=== PATIENT | male | born 1935 | race American Indian/Alaskan Native ===

== ENCOUNTER 2018-07-02 21:51 | Inpatient (IN) | payer MEDICARE ==
[2018-07-02] MEDS ORDERED: SUBLIMAZE ONE (22:13)
[2018-07-02] MEDS ORDERED: NACL 0.9% 500 ML 500 ML IV ONE (22:27)
--- NOTE | 2018-07-02 22:28 | Emergency Department Report ---
ED General Adult HPI - General Chief complaint: Shoulder Injury Stated complaint: SHOULDER PAIN Time Seen by Provider: 07/02/18 21:55 Source: patient, family, EMS (ems notes not available at time of chart dictation), RN notes reviewed, old records reviewed Mode of arrival: Stretcher Limitations: Altered Mental Status, Physical Limitation - History of Present Illness Initial comments: This is an 82-year-old gentleman. The patient is not known to this provider previously. His past medical history includes dementia, DVT, not currently on systemic an ticoagulation, history of anemia, IVC filter. The patient is brought to the hospital by emergency medical services for unwitnessed fall, and questionable left shoulder fracture, dislocation. The patient's last known well time is not known. He was apparently found on the floor, by relatives, for uncertain duration of time, for uncertain mechanism. 911 was then contacted. Upon initial arrival, the patient is awake, protecting his airway, and following commands. He is able to move his right upper extremity and right lower extremity without difficulty. He has weakness in his left lower extremity. He is not sure if this is old or new. He is moving his left hand, wrist, also weakly, but is found to have a palpable deformity in the proximal left humerus. Family arrived shortly thereafter. His daughters indicate that as of now, he is a full code, and advanced directives, goals of care have not been explicitly discussed. they further indicate the patient is mostly wheelchair bound, and has poor strength in his left leg at baseline, secondary to an old hip fracture. They do not believe he's had any fevers or chills, nausea or vomiting. Patient was given fentanyl for proximal left humerus fracture. Code trauma called overhead for mechanical fall, with left-sided weakness, prior to family arriving. Patient is placed in a c-collar during his primary survey. Discussed with orthopedics, Dr. Samuel, who is agreeable to following consultation for proximal left humerus fracture. The patient is a poor historian, and is not able to describe and is not able to describe the qualitative aspects, nature of his pain, symptoms, not able to describe radiation, if any, and is unable to articulate exacerbating or relieving factors. -: unknown Location: left, upper extremity Radiation: other Severity scale (0 -10): 7 Quality: other Consistency: other Improves with: other Worsens with: other Associated Symptoms: other Treatments Prior to Arrival: other - Related Data Home Medications Medication Instructions Recorded Confirmed Last Taken Carbidopa/Levodopa [Carbidopa-Levo 10 - 100 tab PO TID MDD Dose 10-100 10/30/17 07/02/18 07/02/18 10-100 mg Odt] Aspirin EC [Aspirin Enteric Coated 81 mg PO QDAY 11/05/17 07/02/18 07/02/18 TAB] Esomeprazole Magnesium 20 mg PO DAILY 07/02/18 07/02/18 07/02/18 Vitamin D3 2,000 UNIT CAP 2,000 units PO DAILY 07/02/18 07/02/18 07/02/18 cloNIDine-TTS PATCH [Catapres-Tts 0.2 mg TD 1XW 07/02/18 07/02/18 7 Days Ago Patch] ~06/25/18 Allergies Allergy/AdvReac Type Severity Reaction Status Date / Time No Known Allergies Allergy Unverified 10/30/17 23:40 ED Review of Systems ROS: Stated complaint: SHOULDER PAIN Other details as noted in HPI Comment: Unobtainable due to pts medical conditions ED Past Medical Hx - Past Medical History Hx Hypertension: Yes Hx Dementia: Yes Additional medical history: Parkinson, - Surgical History Additional Surgical History: L. hip fracture (introtrochanteric) - Social History Smoking Status: Never Smoker Substance Use Type: None - Medications Home Medications: Home Medications Medication Instructions Recorded Confirmed Last Taken Type Carbidopa/Levodopa [Carbidopa-Levo 10 - 100 tab PO TID MDD Dose 10-100 10/30/17 07/02/18 07/02/18 History 10-100 mg Odt] Aspirin EC [Aspirin Enteric Coated 81 mg PO QDAY 11/05/17 07/02/18 07/02/18 History TAB] Esomeprazole Magnesium 20 mg PO DAILY 07/02/18 07/02/18 07/02/18 History Vitamin D3 2,000 UNIT CAP 2,000 units PO DAILY 07/02/18 07/02/18 07/02/18 History cloNIDine-TTS PATCH [Catapres-Tts 0.2 mg TD 1XW 07/02/18 07/02/18 7 Days Ago History Patch] ~06/25/18 ED Physical Exam - General Limitations: Altered Mental Status, Physical Limitation General appearance: in no apparent distress - Head Head exam: Present: atraumatic, normocephalic - Eye Eye exam: Present: normal appearance, PERRL - ENT ENT exam: Present: normal exam, normal orophraynx, normal external ear exam - Neck Neck exam: Present: normal inspection, full ROM. Absent: tenderness, meningismus - Respiratory Respiratory exam: Present: normal lung sounds bilaterally. Absent: respiratory distress, wheezes, rales, rhonchi, stridor, chest wall tenderness - Cardiovascular Cardiovascular Exam: Present: regular rate, normal rhythm, normal heart sounds. Absent: bradycardia, tachycardia, irregular rhythm - GI/Abdominal GI/Abdominal exam: Present: soft. Absent: distended, tenderness, guarding, rebound, rigid, normal bowel sounds, pulsatile mass - Rectal Rectal exam: Present: normal inspection, normal rectal tone, heme (-) stool. Absent: heme (+) stool, black stool, bloody stool, fecal impaction - exam: Present: normal inspection External exam: Present: normal external exam - Extremities Exam Extremities exam: Present: normal inspection, tenderness, other (there is left proximal humerus tenderness. There is no long bony tenderness otherwise. The muscular compartments are soft. The pelvis is stable. 2+ pulses noted in the bilateral upper, lower extremities.). Absent: full ROM (patient moving right arm, right leg without difficulty. Left leg initially weak, difficulty moving, then range of motion improves. Left arm appears to be weak as well, range of motion in the wrist grossly appears to be intact.) - Back Exam Back exam: Present: normal inspection. Absent: tenderness, CVA tenderness (R) - Neurological Exam Neurological exam: Present: altered, other (there is no facial droop. The tongue is midline. Extraocular movements are intact bilaterally. 5 out of 5 strength right upper, right lower extremity. 4 out of 5 strength left upper, left lower extremity. Sensation appears to be intact to pinch in 4 extremities. Detailed neurologic examination not possible secondary to dementia and poor baseline mental status.) - Psychiatric Psychiatric exam: Present: anxious - Skin Skin exam: Present: dry ED Course Vital Signs 07/02/18 07/02/18 07/02/18 22:05 22:08 22:16 Temperature 97.8 F 97.8 F Pulse Rate 73 68 69 Respiratory 20 15 Rate Blood Pressure 206/81 Blood Pressure 199/90 [Right] O2 Sat by Pulse 100 98 98 Oximetry 07/02/18 07/02/18 07/02/18 22:30 22:46 23:00 Temperature Pulse Rate 69 61 71 Respiratory 14 14 9 L Rate Blood Pressure 167/76 168/67 206/81 Blood Pressure [Right] O2 Sat by Pulse 97 99 Oximetry 07/02/18 07/03/18 07/03/18 23:06 00:00 01:00 Temperature Pulse Rate 68 70 73 Respiratory 13 12 13 Rate Blood Pressure 179/78 177/79 164/85 Blood Pressure [Right] O2 Sat by Pulse 100 100 99 Oximetry 07/03/18 01:30 Temperature Pulse Rate 75 Respiratory 16 Rate Blood Pressure 145/84 Blood Pressure [Right] O2 Sat by Pulse 99 Oximetry - Reevaluation(s) Reevaluation #1: 07/02/18 23:57 Differential diagnosis, including but not limited to: Intracranial injury, cervical spine injury, arterial injury, electrolyte derangement, pneumonia, urinary tract infection, transient ischemic attack, mechanical fall, left proximal humerus fracture Assessment and plan: 82-year-old gentleman status post unwitnessed fall, now with what appears to be resolved left leg weakness, this is most likely chronic, and baseline as per family, also with an acute left proximal humerus fracture. The patient is a very poor historian secondary to Parkinson's and dementia. He is not a TPA candidate as his last known well time is not known. Given that the patient has dementia, and is essentially wheelchair-bound, it is very unlikely that interventional stroke neurology would perform any intervention on this patient, even if he was found to have a large vessel occlusion. However, given his fall, we will obtain a CT angiogram of the head and neck to evaluate for blunt cerebrovascular injury, as well as large vessel occlusion. Left arm will be paced in a sling for comfort. Orthopedics on board. Laboratory studies reviewed and appreciated. We will reevaluate after imaging studies have resulted. Reevaluation #2: 07/03/18 01:48 CT scan of the brain, cervical spine negative for acute disease. Cervical collar discontinued. Angiogram is pending at this time. Reevaluation #3: 07/03/18 03:18 cta head negative cta neck pending patient resting comfortably hospital physician paged Reevaluation #4: 07/03/18 03:21 Dr Verma accepts to the medical service Reevaluation #5: 07/03/18 03:26 CT angiogram of the neck is negative for acute disease. ED Medical Decision Making - Lab Data Result diagrams: 07/02/18 22:22 07/02/18 22:00 Vital Signs 07/02/18 07/02/18 07/02/18 22:05 22:08 22:16 Temperature 97.8 F 97.8 F Pulse Rate 73 68 69 Respiratory 20 15 Rate Blood Pressure 206/81 Blood Pressure 199/90 [Right] O2 Sat by Pulse 100 98 98 Oximetry 07/02/18 07/02/18 07/02/18 22:30 22:46 23:00 Temperature Pulse Rate 69 61 71 Respiratory 14 14 9 L Rate Blood Pressure 167/76 168/67 206/81 Blood Pressure [Right] O2 Sat by Pulse 97 99 Oximetry Lab Results 07/02/18 07/02/18 07/02/18 Range/Units 22:00 22:00 22:00 WBC (4.5-11.0) K/mm3 RBC (3.65-5.03) M/mm3 Hgb (11.8-15.2) gm/dl Hct (35.5-45.6) % MCV (84-94) fl MCH (28-32) pg MCHC (32-34) % RDW (13.2-15.2) % Plt Count (140-440) K/mm3 Lymph % (Auto) (13.4-35.0) % [place] % (Auto) (0.0-7.3) % Eos % (Auto) (0.0-4.3) % Baso % (Auto) (0.0-1.8) % Lymph # (1.2-5.4) K/mm3 [place] # (0.0-0.8) K/mm3 Eos # (0.0-0.4) K/mm3 Baso # (0.0-0.1) K/mm3 Seg Neutrophils % (40.0-70.0) % Seg Neutrophils # (1.8-7.7) K/mm3 PT (12.2-14.9) Sec. INR (0.87-1.13) APTT (24.2-36.6) Sec. Sodium 142 (137-145) mmol/L Potassium 4.0 (3.6-5.0) mmol/L Chloride 103.6 (98-107) mmol/L Carbon Dioxide 24 (22-30) mmol/L Anion Gap 18 mmol/L BUN 21 H (9-20) mg/dL Creatinine 1.0 (0.8-1.5) mg/dL Estimated GFR > 60 ml/min BUN/Creatinine Ratio 21 % Glucose 163 H (75-100) mg/dL Calcium 9.0 (8.4-10.2) mg/dL Total Bilirubin 0.70 (0.1-1.2) mg/dL AST 12 (5-40) units/L ALT 8 (7-56) units/L Alkaline Phosphatase 70 (35-129) units/L Total Creatine Kinase < 7 L (55-170) units/L Troponin T < 0.010 (0.00-0.029) ng/mL Total Protein 6.4 (6.3-8.2) g/dL Albumin 3.9 (3.9-5) g/dL Albumin/Globulin Ratio 1.6 % Urine Bilirubin (Negative) Urine RBC (Auto) (0.0-6.0) /HPF Plasma/Serum Alcohol (0-0.07) % Blood Type A POSITIVE 07/02/18 07/02/18 07/02/18 Range/Units 22:03 22:22 22:22 WBC 6.8 (4.5-11.0) K/mm3 RBC 4.11 (3.65-5.03) M/mm3 Hgb 13.0 (11.8-15.2) gm/dl Hct 38.1 (35.5-45.6) % MCV 93 (84-94) fl MCH 32 (28-32) pg MCHC 34 (32-34) % RDW 14.9 (13.2-15.2) % Plt Count 160 (140-440) K/mm3 Lymph % (Auto) 8.7 L (13.4-35.0) % [place] % (Auto) 5.7 (0.0-7.3) % Eos % (Auto) 0.1 (0.0-4.3) % Baso % (Auto) 1.1 (0.0-1.8) % Lymph # 0.6 L (1.2-5.4) K/mm3 [place] # 0.4 (0.0-0.8) K/mm3 Eos # 0.0 (0.0-0.4) K/mm3 Baso # 0.1 (0.0-0.1) K/mm3 Seg Neutrophils % 84.4 H (40.0-70.0) % Seg Neutrophils # 5.8 (1.8-7.7) K/mm3 PT 13.4 (12.2-14.9) Sec. INR 0.96 (0.87-1.13) APTT 27.0 (24.2-36.6) Sec. Sodium (137-145) mmol/L Potassium (3.6-5.0) mmol/L Chloride (98-107) mmol/L Carbon Dioxide (22-30) mmol/L Anion Gap mmol/L BUN (9-20) mg/dL Creatinine (0.8-1.5) mg/dL Estimated GFR ml/min BUN/Creatinine Ratio % Glucose (75-100) mg/dL Calcium (8.4-10.2) mg/dL Total Bilirubin (0.1-1.2) mg/dL AST (5-40) units/L ALT (7-56) units/L Alkaline Phosphatase (35-129) units/L Total Creatine Kinase (55-170) units/L Troponin T (0.00-0.029) ng/mL Total Protein (6.3-8.2) g/dL Albumin (3.9-5) g/dL Albumin/Globulin Ratio % Urine Bilirubin (Negative) Urine RBC (Auto) (0.0-6.0) /HPF Plasma/Serum Alcohol < 0.01 (0-0.07) % Blood Type 07/02/18 Range/Units 23:27 WBC (4.5-11.0) K/mm3 RBC (3.65-5.03) M/mm3 Hgb (11.8-15.2) gm/dl Hct (35.5-45.6) % MCV (84-94) fl MCH (28-32) pg MCHC (32-34) % RDW (13.2-15.2) % Plt Count (140-440) K/mm3 Lymph % (Auto) (13.4-35.0) % [place] % (Auto) (0.0-7.3) % Eos % (Auto) (0.0-4.3) % Baso % (Auto) (0.0-1.8) % Lymph # (1.2-5.4) K/mm3 [place] # (0.0-0.8) K/mm3 Eos # (0.0-0.4) K/mm3 Baso # (0.0-0.1) K/mm3 Seg Neutrophils % (40.0-70.0) % Seg Neutrophils # (1.8-7.7) K/mm3 PT (12.2-14.9) Sec. INR (0.87-1.13) APTT (24.2-36.6) Sec. Sodium (137-145) mmol/L Potassium (3.6-5.0) mmol/L Chloride (98-107) mmol/L Carbon Dioxide (22-30) mmol/L Anion Gap mmol/L BUN (9-20) mg/dL Creatinine (0.8-1.5) mg/dL Estimated GFR ml/min BUN/Creatinine Ratio % Glucose (75-100) mg/dL Calcium (8.4-10.2) mg/dL Total Bilirubin (0.1-1.2) mg/dL AST (5-40) units/L ALT (7-56) units/L Alkaline Phosphatase (35-129) units/L Total Creatine Kinase (55-170) units/L Troponin T (0.00-0.029) ng/mL Total Protein (6.3-8.2) g/dL Albumin (3.9-5) g/dL Albumin/Globulin Ratio % Urine Bilirubin Neg (Negative) Urine RBC (Auto) 36.0 (0.0-6.0) /HPF Plasma/Serum Alcohol (0-0.07) % Blood Type - EKG Data -: EKG Interpreted by Mt EKG shows normal: sinus rhythm Rate: normal - EKG Data 07/03/18 00:02 EKG shows a sinus rhythm, 73 bpm, normal axis, QTC 447 ms, poor R progression, T-wave inversions V5, V6, borderline left ventricular hypertrophy, this is an abnormal EKG. This EKG is not consistent with ST elevation myocardial infarction. - Radiology Data Radiology results: pending, report reviewed, image reviewed X-ray of the chest negative for pulmonary disease. X-ray of the pelvis for acute disease. DJD noted. Left-sided hip orthopedic hardware is reviewed and appreciated. There is a left-sided proximal impacted humerus fracture noted. Critical care attestation.: If time is entered above; I have spent that time in minutes in the direct care of this critically ill patient, excluding procedure time. ED Disposition Clinical Impression: Left humeral fracture, Dementia, Parkinsons disease, Fall, TIA (transient ischemic attack) Disposition: 09 OP ADMIT IP TO THIS HOSP Is pt being admited?: Yes Does the pt Need Aspirin: Yes Condition: Fair Referrals: PRIMARY CARE, [Primary Care Provider] - 3-5 Days
[2018-07-02] MEDS ORDERED: SUBLIMAZE IV ONE (22:43)
[2018-07-02 22:45] LABS: Alanine Aminotransferase 8 units/L (7-56); Albumin 3.9 g/dL (3.9-5); BUN/Creatinine Ratio 21; Blood Urea Nitrogen 21 mg/dL (9-20); Hemolysis Index 9
[2018-07-02 23:07] LABS: Basophils # (Auto) 0.1 K/mm3 (0.0-0.1); Basophils % (Auto) 1.1 % (0.0-1.8); Eosinophils % (Auto) 0.1 % (0.0-4.3); Hematocrit 38.1 % (35.5-45.6); Lymphocytes # (Auto) 0.6 K/mm3 (1.2-5.4); Lymphocytes % (Auto) 8.7 % (13.4-35.0); Mean Corpuscular HGB Conc 34 % (32-34); Mean Corpuscular Volume 93 fl (84-94); Monocytes # (Auto) 0.4 K/mm3 (0.0-0.8); Monocytes % (Auto) 5.7 % (0.0-7.3); Platelet Count 160 K/mm3 (140-440); Red Blood Count 4.11 M/mm3 (3.65-5.03); Red Cell Distribution Width 14.9 % (13.2-15.2)
[2018-07-02 23:21] LABS: INR 0.96 (0.87-1.13)
--- NOTE | 2018-07-02 23:37 | XRay Report ---
PROCEDURE: XR PELVIS 1-2V TECHNIQUE: Pelvis radiograph, one view. HISTORY: Pelvic pain Trauma COMPARISONS: None FINDINGS: Fracture(s): No evidence of an acute fracture. There has been previous Gamma nailing of the proximal left femur. Joint spaces: Mild narrowing of the hip joint spaces Soft tissues: Normal Foreign bodies: Gamma nailing hardware is identified. The patient has had previous radiation seeds p laced in the prostate gland. Bone mineralization: Normal IMPRESSION: There is no evidence of an acute fracture. Mild arthritis. Previous Gamma nailing proximal femur. This document is electronically signed by Lindsey Beauchamp DO., July 02 2018 11:35:11 PM ET
--- NOTE | 2018-07-02 23:46 | XRay Report ---
PROCEDURE: XR HUMERUS 1V LT TECHNIQUE: Left humerus radiographs, AP and lateral views. HISTORY: Arm pain Trauma COMPARISONS: None . FINDINGS: Fracture (s) and/or Dislocation(s): There is an impacted fracture of the proximal left humeral shaft just below the humeral head. . Joint space(s): Moderate narrowing of joint spaces . Soft tissues: Normal . Bone mineralization: Mild generalized osteopenia . Foreign bodies: None . IMPRESSION: There is an impacted fracture of the proximal left humeral shaft just below the humeral head. . This document is electronically signed by Lindsey Beauchamp DO., July 02 2018 11:44:39 PM ET
--- NOTE | 2018-07-02 23:47 | XRay Report ---
PROCEDURE: XR CHEST 1V AP TECHNIQUE: Chest radiograph single view. HISTORY: Chest pain Trauma COMPARISONS: None . FINDINGS: Heart: Normal. Mediastinum/Vessels: Normal. Lungs/Pleural space: Normal. Bony thorax: No acute osseous abnormality. Life support devices: None. IMPRESSION: No acute cardiopulmonary abnormality. This document is electronically signed by Lindsey Beauchamp DO., July 02 2018 11:45:36 PM ET
[2018-07-02 23:51] LABS: Bilirubin,Urine NEG (Negative); Blood,Urine MOD (Negative); Mucus,Urine 3+ /HPF; Protein,Urine <15 mg/dL mg/dL (Negative)
[2018-07-02] MEDS ORDERED: APRESOLINE IV ONE (23:51)
[2018-07-02 23:53] LABS: Color,Urine Dark Yellow (Yellow)
--- NOTE | 2018-07-03 00:58 | Cat Scan Report ---
PROCEDURE: CT HEAD/BRAIN WO CON TECHNIQUE: Computerized tomography of the head was performed without contrast material. CT DOSE LENGTH PRODUCT: 920.5 mGycm HISTORY: Altered mental status Trauma pain COMPARISONS: None . FINDINGS: Skull and scalp: Normal . Paranasal sinuses: Normal . Ventricles and subarachnoid spaces: Normal . Cerebrum: No evidence of hemorrhage, acute infarction or mass. Mild atrophy and slight periventricul ar deep white matter change . Cerebellum and brainstem: No evidence of hemorrhage, acute infarction or mass . Vasculature: Normal . Other: None . ASPECTS: 10 IMPRESSION: There is no evidence of an acute intracranial process. There is mild atrophy and slight periventricular deep white matter change . This document is electronically signed by Lindsey Beauchamp DO., July 03 2018 12:56:07 AM ET
--- NOTE | 2018-07-03 01:00 | Cat Scan Report ---
PROCEDURE: CT CERVICAL SPINE WO CON TECHNIQUE: Computerized tomography of the cervical spine was performed from the skull base to T1 wit hout contrast material. CT DOSE LENGTH PRODUCT: 577.7 mGycm HISTORY: Cervical spine pain Trauma COMPARISONS: None . FINDINGS: The alignment of the vertebral segments is normal. There is no evidence of an acute fracture or dislo cation of the cervical spine. The heights of the vertebral bodies are maintained. There is loss of di sc space height at all levels. There is moderate spur formation off the vertebral bodies at all level s. Mild facet hypertrophy is identified at all levels. The AP spinal canal is maintained at all level s. Mild bilateral neural foramen stenosis is identified at the C 4 5, C5-6 and C6-7 levels. IMPRESSION: There is no evidence of an acute fracture or dislocation of the cervical spine. Moderate cervical spondylosis and degenerative disc changes are identified throughout the cervical spine as d iscussed above in detail. . This document is electronically signed by Lindsey Beauchamp DO., July 03 2018 12:58:24 AM ET
--- NOTE | 2018-07-03 03:14 | Cat Scan Report ---
PROCEDURE: CT ANGIO HEAD TECHNIQUE: Computerized tomographic angiography of the head was performed after the IV injection of iodinated nonionic contrast including image processing. The image data was postprocessed using 2-dim ensional multiplanar reformatted (MPR) and 3-dimensional (MIP and/or volume rendered) techniques. HISTORY: left sided weakness COMPARISONS: None . FINDINGS: Cerebrum: No evidence of hemorrhage, acute ischemia or mass . Cerebellum: No evidence of hemorrhage, acute ischemia or mass . Subarachnoid spaces and ventricles: Normal . Intracranial vessels: Carotid siphon: Normal . Anterior cerebral: Normal . Middle cerebral: Normal . Posterior cerebral: Normal . Vertebral arteries including basilar: Normal . Aneurysms: None . Dural sinuses: Normal. IMPRESSION: Normal Examination . This document is electronically signed by Lindsey Beauchamp DO., July 03 2018 03:12:57 AM ET
--- NOTE | 2018-07-03 03:21 | Cat Scan Report ---
PROCEDURE: CT ANGIO NECK TECHNIQUE: Computerized tomographic angiography of the neck was performed after the IV injection of iodinated nonionic contrast including image processing. The image data was postprocessed using 2-dime nsional multiplanar reformatted (MPR) and 3-dimensional (MIP and/or volume rendered) techniques. HISTORY: left sided weakness COMPARISONS: None . Note: Assessment of carotid artery stenosis is based on measurement of the distal internal carotid a rtery diameter as the denominator for stenosis calculations and the [place] Symptomatic Caroti d Endarterectomy Trial (NASCET) stenosis criteria. FINDINGS: Sinuses: Normal . Non vascular cervical structures: No significant abnormality . Aortic arch: Normal . Right carotid artery: Normal . Left carotid artery: Normal . Vertebral arteries: Normal . IMPRESSION: Normal Examination . This document is electronically signed by Lindsey Beauchamp DO., July 03 2018 03:19:31 AM ET
[2018-07-03] MEDS ORDERED: BABY ASPIRIN PO ONE (03:22)
[2018-07-03] MEDS ORDERED: ZOFRAN IV PRN (04:18)
[2018-07-03] MEDS ORDERED: TYLENOL PR PRN (04:22)
--- NOTE | 2018-07-03 05:11 | History and Physical Report ---
CHIEF COMPLAINT: Pain in the left upper extremity. OTHER COMPLAINT: Include fall and weakness in the lower extremity. HISTORY OF PRESENT ILLNESS: The patient is an 82-year-old male with history of dementia, who was noted to have unwitnessed fall with pain in the left upper extremity and also weakness of the lower extremity. There was no history of prior chest pain, shortness of breath, nausea or vomiting. The patient also denies history of dizziness and was noted to have weakness of his left lower extremity and presented for evaluation. The patient had x-ray and CAT scans done and the x-ray of the left upper extremity showed impacted fracture of the left humeral bone and the patient was presented for admission. PAST MEDICAL HISTORY: Pertinent for hypertension, dementia, Parkinson's disease. PAST SURGICAL HISTORY: Pertinent for left hip fracture. FAMILY HISTORY: Family history is noncontributory. SOCIAL HISTORY: The patient does not smoke, does not drink alcohol and does not use illicit drugs. MEDICATIONS: The patient is on carbidopa/levodopa 10/100 mg 1 by mouth daily, aspirin 81 mg by mouth daily, Nexium 20 mg by mouth daily, vitamin D3 2000 units by mouth daily, clonidine patch 0.2 mg transdermally once weekly. ALLERGIES: There are no known drug allergies. REVIEW OF SYSTEMS: CONSTITUTIONAL: There is no fever, no chills, no diaphoresis. HEENT: There is no headache or sore throat. CARDIOVASCULAR SYSTEM: There is no chest pain or orthopnea. RESPIRATORY SYSTEM: There is no shortness of breath or cough. GASTROINTESTINAL SYSTEM: There is no nausea, no vomiting, no abdominal pain, diarrhea or constipation. NEUROLOGICAL SYSTEM: Weakness of the left lower extremity noted. Frequent falls noted. There is no new altered mental status. MUSCULOSKELETAL SYSTEM: Pain in the left upper extremity noted. No swelling. DERMATOLOGICAL SYSTEM: There is no skin rash or itching. GENITOURINARY SYSTEM: There is no dysuria, hematuria or flank pain. Rest of system review is normal. PHYSICAL EXAMINATION: GENERAL: At the time of exam, the patient was found to be alert, oriented to person only and not in acute distress. VITAL SIGNS: At the initial time of presentation show temperature of 97.8, pulse of 73, respiration 20, blood pressure 199/90 with repeat blood pressure later on going down to 145/84. O2 sat of 97%-100% on room air. HEENT: Show pupils to be equal, round, reactive to light and accommodating. Extraocular muscles are intact. NECK: Supple with no JVD or carotid bruit. CARDIOVASCULAR SYSTEM: Showed normal first and second heart sounds with no gallops or murmurs. RESPIRATORY SYSTEM: Show good air entry on both sides of the lungs with no abnormal breath sounds. GASTROINTESTINAL SYSTEM: Shows abdomen to be full, soft, nontender with no organomegaly or rigidity. NEUROLOGIC: Shows weakness in the left lower extremity compared to the right with muscle strength of grade 3/6, compared to 6/6 on the right. There is no loss of sensory function. MUSCULOSKELETAL SYSTEM: Show tenderness in the left upper arm area where the patient had fracture. No swelling was noted. DERMATOLOGICAL SYSTEM: Show no skin rash. GENITOURINARY SYSTEM: Show no costovertebral angle tenderness. PERTINENT LABORATORY DATA AND IMAGING STUDIES: The patient had CT of the cervical spine done that shows no evidence of fracture or dislocation of the cervical spine. There is moderate cervical spondylosis and degenerative changes identified throughout the cervical spine. The patient also had chest x-ray done, which shows no acute cardiopulmonary lesion. The patient has CT of the head without contrast done and this shows no evidence of acute intracranial process. There is finding of mild atrophy and slight periventricular deep white matter changes. The patient had pelvic x-ray done that shows no evidence of acute fracture. There is finding of mild arthritis and previous gamma nailing proximal femur. The patient had x-ray of the humerus done that shows an impacted fracture of the proximal left humeral shaft just below the humeral head and the patient has CT angiogram of the neck done that was normal and also the patient has CT angiogram of the head done that was normal. Lab results, the patient has CBC done that was unremarkable except for elevated segmental neutrophil count of 84.4% on CBC differential. Coagulation studies were unremarkable. The patient's chemistry came back unremarkable. The patient's urinalysis was unremarkable. blood alcohol level was also unremarkable. DIAGNOSES: 1. Left humeral bone fracture. 2. Transient ischemic attack. PLAN OF CARE: 1. The patient will be admitted as inpatient to telemetry. 2. The patient will have MRI of the brain without contrast done this morning because of diagnosis of TIA. 3. The patient will have bilateral carotid Doppler and 2D echo done this morning because of diagnosis of TIA. 4. The patient will continue Orthopedic Surgical consult with Dr. Samuel as requested by the Emergency Room Physician. 5. The patient will be on IV morphine 2 mg every 3 hours as needed for pain and IV Zofran 4 mg every 8 hours for nausea and vomiting. 6. The patient will remain n.p.o. until seen by the Orthopedic surgeon. 7. The patient will be on Tylenol 650 mg rectally every 4 hours as needed for fever and headache and will be on sequential compressive device for DVT prophylaxis. 8. The patient will have physical therapy evaluation and treatment done this morning because of weakness of the left lower extremity. JOB# [id number] OCN/NTS
--- NOTE | 2018-07-03 11:31 | Event Note ---
Date: 07/03/18 82-year-old male patient status post fall sustained a left humeral bone fracture Orthopedic surgeon was consulted. Patient seen and examined Medical records reviewed, fall precautions, pain management Resume all home medications Follow orthopedic evaluation and recommendations Agree with the current management Plan of care reviewed with the patient and his nurse
[2018-07-03] MEDS ORDERED: CATAPRES-TTS PATCH TD SCH (13:00)
[2018-07-03] MEDS ORDERED: CARBIDOPA PO SCH (14:00)
[2018-07-03] MEDS ORDERED: LEVODOPA PO SCH (14:00)
--- NOTE | 2018-07-03 14:34 | Vascular Lab Report ---
PROCEDURE: VL CAROTID DUPLEX BILAT TECHNIQUE: Duplex Doppler ultrasound of the common, internal and external carotid arteries and the v ertebral arteries was performed bilaterally. Parra scale imaging, velocity spectral waveform analysis, and color flow Doppler were employed. HISTORY: TIA COMPARISONS: None . Note: Measurement of carotid stenosis is based on flow velocity values that correlate with the [place] Symptomatic Carotid Endarterectomy Trial (NASCET) based stenosis criteria using the internal carotid artery diameter as the denominator for stenosis calculation. FINDINGS: RIGHT carotid artery: Velocities: ICA PSV: 64 cm/sec ICA End diastolic: 15 cm/sec CCA PSV: 76 cm/sec IC/CC ratio: 0.8 Plaque/color flow: Unremarkable . RIGHT vertebral artery: Antegrade systolic and diastolic flow LEFT carotid artery: Velocities: ICA PSV: 73 cm/sec ICA End diastolic: 16 cm/sec CCA PSV: 87 cm/sec IC/CC ratio: 0.8 Plaque/color flow: Unremarkable . LEFT vertebral artery: Antegrade systolic and diastolic flow IMPRESSION: 1. RIGHT carotid: No hemodynamically significant (less than 50 percent) internal carotid artery arina nosis. 2. LEFT carotid: No hemodynamically significant (less than 50 percent) internal carotid artery sten osis. 3. Vertebral arteries: Bilaterally antegrade. This document is electronically signed by Ramona Chisholm MD., July 03 2018 02:32:08 PM ET
[2018-07-03] MEDS: SINEMET PO SCH ×2 (17:29→21:14)
[2018-07-04 04:32] LABS: Red Blood Count 3.88 M/mm3 (3.65-5.03)
[2018-07-04 04:36] LABS: Basophils % (Auto) 0.6 % (0.0-1.8); Eosinophils % (Auto) 0.8 % (0.0-4.3); Hematocrit 35.2 % (35.5-45.6); Lymphocytes % (Auto) 18.6 % (13.4-35.0); Mean Corpuscular HGB Conc 34 % (32-34); Mean Corpuscular Volume 91 fl (84-94); Monocytes # (Auto) 0.5 K/mm3 (0.0-0.8); Monocytes % (Auto) 10.3 % (0.0-7.3); Platelet Count 147 K/mm3 (140-440); Red Cell Distribution Width 14.9 % (13.2-15.2)
[2018-07-04 04:46] LABS: BUN/Creatinine Ratio 23; Blood Urea Nitrogen 18 mg/dL (9-20); Calcium 9.1 mg/dL (8.4-10.2)
[2018-07-04 04:47] LABS: Hemolysis Index 5
[2018-07-04] MEDS: MORPHINE IV PRN (10:00)
[2018-07-04] MEDS: SINEMET PO SCH ×3 (10:25→22:07)
[2018-07-04] MEDS: HALFPRIN EC PO SCH (10:25)
--- NOTE | 2018-07-04 13:19 | Consultation ---
History of Present Illness - [facility] Consult date: 07/04/18 Consult reason: fracture History of present illness: 82 y/o male well known to me from previous left hip fracture October 2017 underwent Intramedullary nailing left hip...Lost to outpatient follow up since that time comes to hospital now c/o left shoulder after fall at home... Medications and Allergies Allergies Allergy/AdvReac Type Severity Reaction Status Date / Time No Known Allergies Allergy Unverified 10/30/17 23:40 Home Medications Medication Instructions Recorded Confirmed Last Taken Type Carbidopa/Levodopa [Carbidopa-Levo 10 - 100 tab PO TID MDD Dose 10-100 10/30/17 07/02/18 07/02/18 History 10-100 mg Odt] Aspirin EC [Aspirin Enteric Coated 81 mg PO QDAY 11/05/17 07/02/18 07/02/18 History TAB] Esomeprazole Magnesium 20 mg PO DAILY 07/02/18 07/02/18 07/02/18 History Vitamin D3 2,000 UNIT CAP 2,000 units PO DAILY 07/02/18 07/02/18 07/02/18 History cloNIDine-TTS PATCH [Catapres-Tts 0.2 mg TD 1XW 07/02/18 07/02/18 7 Days Ago History Patch] ~06/25/18 Active Meds: Active Medications Acetaminophen (Tylenol) 650 mg PA Q4H PRN PRN Reason: Fever >101 Aspirin (Halfprin Ec) 81 mg PO QDAY [facility] Last Admin: 07/04/18 10:25 Dose: Not Given Documented by: Carbidopa/Levodopa (Sinemet) 1 each PO TID [facility] Last Admin: 07/04/18 10:25 Dose: Not Given Documented by: Clonidine HCl (Catapres-Tts Patch) 0.2 mg TD Flowers [facility] Last Admin: 07/03/18 14:18 Dose: 0.2 mg Documented by: Morphine Sulfate (Morphine) 2 mg IV Q3H PRN PRN Reason: Pain, Moderate (4-6) Last Admin: 07/04/18 10:00 Dose: 2 mg Documented by: Ondansetron HCl (Zofran) 4 mg IV Q8H PRN PRN Reason: Nausea And Vomiting Last Admin: 07/04/18 10:00 Dose: 4 mg Documented by: Physical Examination - Physical exam Narrative exam: left upper extremity - moderate swelling proximal humerus, no obvious deformity noted, tender on palpation, distal n/v intact plain xrays left humerus reviewed by me and show minimally displaced proximal third humerus fracture Assessment and Plan asses - left proximal humerus fracture minimally displaced Recommend - conservative therapy with arm sling and pain control, followed ROM exercises in 3-4 wks post injury...
[2018-07-04] MEDS ORDERED: ATIVAN ONE (13:30)
--- NOTE | 2018-07-04 15:19 | Magnetic Resonance Report ---
MRI OF THE BRAIN WITHOUT CONTRAST: HISTORY: TIA PROCEDURE: Multiplanar, multisequence MR imaging of the brain without IV contrast was performed. FINDINGS: Mild diffuse cortical volume loss and mild nonspecific chronic white matter changes are identified. Otherwise, the brain parenchyma signal intensity and its herr white interface are within normal limits on all sequences. No evidence for acute ischemia, hemorrhage or mass. No chronic infarct or extra-axial fluid collection. The midline structures are central. The basal cisterns are patent. Normal ventricular size. The orbital cavities and sella turcica demonstrate no abnormality. The visualized paranasal sinuses and mastoid air cells are well aerated. IMPRESSION: Volume loss and chronic white matter changes. No acute intracranial process.
--- NOTE | 2018-07-04 18:47 | Progress Note ---
Assessment and Plan Assessment and plan: --History of fall; Fall precautions. Supportive care. Physical therapy occupational therapy Possible placement Workup so far; MRI no acute abnormality CT head; no acute abnormality CT cervical spine; no acute fracture or dislocation, cervical spondylosis degenerative disc disease CTA head; normal study CTA neck; no acute abnormality Echocardiogram; EF 45-50% Carotid Doppler; less than 50% stenosis Left humerus x-ray; impacted fracture of proximal left humeral shaft Blood --Left proximal humerus fracture; evaluated by orthopedics conservative management Pain medications, sling, range of motion exercises after 3-4 weeks Plan of care discussed with Dr. Samuel --Dementia; continue supportive care --Hypertension; moderate control Continue current antihypertensives and when necessary medication --History of Parkinson's disease; fall precautions Continue carbidopa levodopa, neurology consult if needed --DVT prophylaxis; Lovenox --Full CODE STATUS Monitored the patient closely and adjust management as needed Physical therapy and occupational therapy Discharge planning per case management; possible placement Plan of care is reviewed with the patient's nurse History Interval history: Patient seen and examined medical records reviewed Patient is comfortable not in acute distress Confused, dementia Left humerus fracture, and screening No new events reported by the nursing Vital signs noted Hospitalist Physical - Constitutional Vitals: Temp Pulse Resp BP Pulse Ox 97.7 F 56 L 20 169/76 95 07/04/18 16:45 07/04/18 16:44 07/04/18 16:44 07/04/18 16:44 07/04/18 16:44 General appearance: Present: no acute distress, cachectic, disheveled, other (confused) - EENT Eyes: Present: PERRL, EOM intact - Neck Neck: Present: supple, normal ROM - Respiratory Respiratory effort: normal Respiratory: bilateral: diminished, negative: rales, rhonchi, wheezing - Cardiovascular Rhythm: regular Heart Sounds: Present: S1 & S2 - Extremities Extremities: no ischemia, No edema, abnormal (fracture left humerus in sling) - Abdominal General gastrointestinal: soft, non-tender, non-distended, normal bowel sounds - Integumentary Integumentary: Present: clear, warm - Psychiatric Psychiatric: cooperative, other (confused) - Neurologic Neurologic: moves all extremities Results - Labs CBC & Chem 7: 07/04/18 03:57 07/04/18 03:57 Labs: Laboratory Last Values WBC 5.3 K/mm3 (4.5-11.0) 07/04/18 03:57 RBC 3.88 M/mm3 (3.65-5.03) 07/04/18 03:57 Hgb 12.0 gm/dl (11.8-15.2) 07/04/18 03:57 Hct 35.2 % (35.5-45.6) L 07/04/18 03:57 MCV 91 fl (84-94) 07/04/18 03:57 MCH 31 pg (28-32) 07/04/18 03:57 MCHC 34 % (32-34) 07/04/18 03:57 RDW 14.9 % (13.2-15.2) 07/04/18 03:57 Plt Count 147 K/mm3 (140-440) 07/04/18 03:57 Lymph % (Auto) 18.6 % (13.4-35.0) 07/04/18 03:57 [place] % (Auto) 10.3 % (0.0-7.3) H 07/04/18 03:57 Eos % (Auto) 0.8 % (0.0-4.3) 07/04/18 03:57 Baso % (Auto) 0.6 % (0.0-1.8) 07/04/18 03:57 Lymph # 1.0 K/mm3 (1.2-5.4) L 07/04/18 03:57 [place] # 0.5 K/mm3 (0.0-0.8) 07/04/18 03:57 Eos # 0.0 K/mm3 (0.0-0.4) 07/04/18 03:57 Baso # 0.0 K/mm3 (0.0-0.1) 07/04/18 03:57 Seg Neutrophils % 69.7 % (40.0-70.0) 07/04/18 03:57 Seg Neutrophils # 3.7 K/mm3 (1.8-7.7) 07/04/18 03:57 PT 13.4 Sec. (12.2-14.9) 07/02/18 22:22 INR 0.96 (0.87-1.13) 07/02/18 22:22 APTT 27.0 Sec. (24.2-36.6) 07/02/18 22:22 Sodium 142 mmol/L (137-145) 07/04/18 03:57 Potassium 4.0 mmol/L (3.6-5.0) 07/04/18 03:57 Chloride 105.3 mmol/L (98-107) 07/04/18 03:57 Carbon Dioxide 28 mmol/L (22-30) 07/04/18 03:57 Anion Gap 13 mmol/L 07/04/18 03:57 BUN 18 mg/dL (9-20) 07/04/18 03:57 Creatinine 0.8 mg/dL (0.8-1.5) 07/04/18 03:57 Estimated GFR > 60 ml/min 07/04/18 03:57 BUN/Creatinine Ratio 23 % 07/04/18 03:57 Glucose 120 mg/dL (75-100) H 07/04/18 03:57 Calcium 9.1 mg/dL (8.4-10.2) 07/04/18 03:57 Total Bilirubin 0.70 mg/dL (0.1-1.2) 07/02/18 22:00 AST 12 units/L (5-40) 07/02/18 22:00 ALT 8 units/L (7-56) 07/02/18 22:00 Alkaline Phosphatase 70 units/L (35-129) 07/02/18 22:00 Total Creatine Kinase 48 units/L (55-170) L 07/04/18 03:57 Troponin T < 0.010 ng/mL (0.00-0.029) 07/02/18 22:00 Total Protein 6.4 g/dL (6.3-8.2) 07/02/18 22:00 Albumin 3.9 g/dL (3.9-5) 07/02/18 22:00 Albumin/Globulin Ratio 1.6 % 07/02/18 22:00 Urine Color Dark yellow (Yellow) 07/02/18 23:27 Urine Turbidity Clear (Clear) 07/02/18 23:27 Urine pH 5.0 (5.0-7.0) 07/02/18 23:27 Ur Specific [place] 1.036 (1.003-1.030) H 07/02/18 23:27 Urine Protein <15 mg/dl mg/dL (Negative) 07/02/18 23:27 Urine Glucose (UA) 50 mg/dL (Negative) 07/02/18 23: Urine Ketones 20 mg/dL (Negative) 07/02/18 23: Urine Blood Mod (Negative) 07/02/18 23: Urine Nitrite Neg (Negative) 07/02/18 23: Urine Bilirubin Neg (Negative) 07/02/18 23: Urine Urobilinogen 4.0 mg/dL (<2.0) 07/02/18 23: Ur Leukocyte Esterase Neg (Negative) 07/02/18 23: Urine WBC (Auto) 1.0 /HPF (0.0-6.0) 07/02/18 23: Urine RBC (Auto) 36.0 /HPF (0.0-6.0) 07/02/18 23: Urine Mucus 3+ /HPF 07/02/18: Plasma/Serum Alcohol < 0.01 % (0-0.07) 07/02/18 22:03 Blood Type A POSITIVE 07/02/18 22:00 Antibody Screen Negative 07/02/18 22:00 Active Medications - Current Medications Current Medications: Generic Name Dose Route Start Last Admin Trade Name Freq PRN Reason Stop Dose Admin Acetaminophen 650 mg 07/03/18 04:22 Tylenol [place] Q4H PRN Fever >101 Aspirin 81 mg 07/04/18 10:00 07/04/18 10:25 Halfprin Ec PO Not Given QDAY [facility] Carbidopa/Levodopa 1 each 07/03/18 14:00 07/04/18 18:05 Sinemet PO Not Given TID [facility] Clonidine HCl 0.2 mg 07/03/18 13:00 07/03/18 14:18 Catapres-Tts Patch TD 0.2 mg Flowers [facility] Administration Morphine Sulfate 2 mg 07/03/18 04:18 07/04/18 10:00 Morphine IV 2 mg Q3H PRN Administration Pain, Moderate (4-6) Ondansetron HCl 4 mg 07/03/18 04:18 07/04/18 10:00 Zofran IV 4 mg Q8H PRN Administration Nausea And Vomiting
[2018-07-05] MEDS ORDERED: LOVENOX SUB-Q SCH (10:00)
[2018-07-05] MEDS: SINEMET PO SCH ×3 (10:21→21:48)
[2018-07-05] MEDS: LOVENOX SUB-Q SCH (10:21)
[2018-07-05] MEDS: MORPHINE IV PRN ×2 (10:21→17:59)
[2018-07-05] MEDS: HALFPRIN EC PO SCH (10:21)
--- NOTE | 2018-07-05 14:43 | Progress Note ---
Assessment and Plan /-Left proximal humerus fracture; evaluated by orthopedics, conservative management Pain medications, sling, range of motion exercises after 3-4 weeks Plan of care discussed with Dr. Samuel /History of fall; Fall precautions. Supportive care. Physical therapy occupational therapy Possible placement Workup so far; MRI no acute abnormality CT head; no acute abnormality CT cervical spine; no acute fracture or dislocation, cervical spondylosis degenerative disc disease CTA head; normal study CTA neck; no acute abnormality Echocardiogram; EF 45-50% Carotid Doppler; less than 50% stenosis Left humerus x-ray; impacted fracture of proximal left humeral shaft /-Dementia; continue supportive care /-Hypertension; moderate control Continue current antihypertensives and when necessary medication /-History of Parkinson's disease; fall precautions Continue carbidopa levodopa, neurology consult if needed /-DVT prophylaxis; Lovenox /Full CODE STATUS Discharge planning per case management; need placement Plan of care is reviewed with the patient's nurse and with the daughter Brief History 82-year-old male patient with h/o dementia, chronic debility status post fall sustained a left humeral bone fracture, Orthopedic surgeon was consulted recommended medical Mx. Family requesting rehab on discharge. Hospitalist Physical General appearance: Present: no acute distress, cachectic, disheveled, other (confused) - EENT Eyes: Present: PERRL, EOM intact - Neck Neck: Present: supple, normal ROM - Respiratory Respiratory effort: normal Respiratory: bilateral: diminished, negative: rales, rhonchi, wheezing - Cardiovascular Rhythm: regular Heart Sounds: Present: S1 & S2 - Extremities Extremities: no ischemia, No edema, abnormal (fracture left humerus in sling) - Abdominal General gastrointestinal: soft, non-tender, non-distended, normal bowel sounds - Integumentary Integumentary: Present: clear, warm - Psychiatric Psychiatric: cooperative, other (confused) - Neurologic Neurologic: moves all extremities Subjective Date of service: 07/05/18 Interval history: Patient seen and examined daughter at bedside patient noted to be very demented and with left shoulder arm sling Objective - Constitutional Vitals: Vital Signs - 12hr 07/05/18 07/05/18 07/05/18 04:24 08:54 08:55 Temperature 98.2 F 98.4 F Pulse Rate 67 67 Respiratory 16 20 Rate Blood Pressure 167/79 157/70 O2 Sat by Pulse 97 100 Oximetry 07/05/18 12:54 Temperature 98.2 F Pulse Rate 68 Respiratory 18 Rate Blood Pressure 161/72 O2 Sat by Pulse 98 Oximetry - Labs CBC & Chem 7: 07/04/18 03:57 07/04/18 03:57
[2018-07-06] MEDS: SINEMET PO SCH ×3 (09:10→21:07)
[2018-07-06] MEDS: HALFPRIN EC PO SCH (09:10)
[2018-07-06] MEDS: LOVENOX SUB-Q SCH (09:10)
--- NOTE | 2018-07-06 16:59 | Progress Note ---
Assessment and Plan /-Left proximal humerus fracture; evaluated by orthopedics, conservative management Pain medications, sling, range of motion exercises after 3-4 weeks Plan of care discussed with Dr. Samuel /History of fall; Fall precautions. Supportive care. Physical therapy occupational therapy Possible placement Workup so far; MRI no acute abnormality CT head; no acute abnormality CT cervical spine; no acute fracture or dislocation, cervical spondylosis degenerative disc disease CTA head; normal study CTA neck; no acute abnormality Echocardiogram; EF 45-50% Carotid Doppler; less than 50% stenosis Left humerus x-ray; impacted fracture of proximal left humeral shaft /-Dementia; continue supportive care /-Hypertension; moderate control Continue current antihypertensives and when necessary medication /-History of Parkinson's disease; fall precautions Continue carbidopa levodopa, neurology consult if needed /-DVT prophylaxis; Lovenox /Full CODE STATUS Discharge planning per case management; need placement Plan of care is reviewed with the patient's nurse and CM Brief History 82-year-old male patient with h/o dementia, chronic debility status post fall sustained a left humeral bone fracture, Orthopedic surgeon was consulted recommended medical Mx. Family requesting rehab on discharge. Hospitalist Physical General appearance: Present: no acute distress, cachectic, disheveled, other (confused) - EENT Eyes: Present: PERRL, EOM intact - Neck Neck: Present: supple, normal ROM - Respiratory Respiratory effort: normal Respiratory: bilateral: diminished, negative: rales, rhonchi, wheezing - Cardiovascular Rhythm: regular Heart Sounds: Present: S1 & S2 - Extremities Extremities: no ischemia, No edema, abnormal (fracture left humerus in sling) - Abdominal General gastrointestinal: soft, non-tender, non-distended, normal bowel sounds - Integumentary Integumentary: Present: clear, warm - Psychiatric Psychiatric: cooperative, other (confused) - Neurologic Neurologic: moves all extremities Subjective Date of service: 07/06/18 Interval history: Patient seen and examined patient noted to be very demented and with left shoulder arm sling pending d/c to [facility] Objective - Constitutional Vitals: Vital Signs - 12hr 07/06/18 07/06/18 08:22 12:57 Temperature 97.6 F 97.2 F L Pulse Rate 63 66 Respiratory 16 16 Rate Blood Pressure 160/68 169/71 O2 Sat by Pulse 98 98 Oximetry - Labs CBC & Chem 7: 07/04/18 03:57 07/04/18 03:57
[2018-07-07] MEDS: LOVENOX SUB-Q SCH (09:29)
[2018-07-07] MEDS: HALFPRIN EC PO SCH (09:29)
[2018-07-07] MEDS: MORPHINE IV PRN (09:29)
[2018-07-07] MEDS: SINEMET PO SCH ×2 (09:30→14:34)
--- NOTE | 2018-07-07 14:57 | Discharge Summary ---
Providers - Providers Date of Admission: 07/03/18 03:22 Date of discharge: 07/07/18 Attending physician: YVETTE DAVIS 07/03/18 02:21 Consult to Physician [CONS] Urgent Comment: Dr. Hawk spoke with Dr. Samuel @ [phone] Consulting Provider: ALONDRA SAMUEL Physician Instructions: Reason For Exam: PROX HUMERUS FX 07/03/18 06:57 Speech Therapy Evaluation and Treat [CONS] Urgent Reason For Exam: swallow screen 07/03/18 11:29 Occupational Therapy Evaluate and Treat [CONS] Routine Comment: Reason For Exam: fall/humerus fracture Physical Therapy Evaluation and Treat [CONS] Routine Comment: Reason For Exam: status post fall/humerus fracture Primary care physician: [employer] Hospitalization Reason for admission: fall Condition: Fair Hospital course: Brief History 82-year-old male patient with h/o dementia, chronic debility status post fall sustained a left humeral bone fracture, Orthopedic surgeon was consulted recommended medical Mx. Family requested rehab on discharge. He was then discharge to SNF with rehab in stable condition. Radiological Workup; MRI no acute abnormality CT head; no acute abnormality CT cervical spine; no acute fracture or dislocation, cervical spondylosis degenerative disc disease CTA head; normal study CTA neck; no acute abnormality Echocardiogram; EF 45-50% Carotid Doppler; less than 50% stenosis Left humerus x-ray; impacted fracture of proximal left humeral shaft Discharge diagnosis and management: /-Left proximal humerus fracture; evaluated by orthopedics, conservative management placed on Pain medications, sling, recommended range of motion exercises after 3-4 weeks Plan of care discussed with Dr. Samuel /History of fall; managed with Fall precautions. Supportive care. 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, added nutrition boost /-DVT prophylaxis; Lovenox /Full CODE STATUS Discharge: [facility] Hospitalist Physical General appearance: Present: no acute distress, cachectic, disheveled, other (confused) - EENT Eyes: Present: PERRL, EOM intact - Neck Neck: Present: supple, normal ROM - Respiratory Respiratory effort: normal Respiratory: bilateral: diminished, negative: rales, rhonchi, wheezing - Cardiovascular Rhythm: regular Heart Sounds: Present: S1 & S2 - Extremities Extremities: no ischemia, No edema, abnormal (fracture left humerus in sling) - Abdominal General gastrointestinal: soft, non-tender, non-distended, normal bowel sounds - Integumentary Integumentary: Present: clear, warm - Psychiatric Psychiatric: cooperative, other (confused) - Neurologic Neurologic: moves all extremities Disposition: DC/[facility]-03 [facility]F [facility] Time spent for discharge: 34 minutes Core Measure Documentation - Palliative Care Palliative Care/ Comfort Measures: Not Applicable - Core Measures Any of the following diagnoses?: none Exam - Constitutional Vitals: Temp Pulse Resp BP Pulse Ox 98.2 F 59 L 16 158/66 99 07/07/18 03:34 07/07/18 03:34 07/07/18 03:34 07/07/18 03:34 07/07/18 03:34 Plan Activity: up only with assistance, fall precautions Weight Bearing Status: Non-Weight Bearing Diet: other (mechanical soft with nutrition boost) Follow up with: PRIMARY CARE, [Primary Care Provider] - 3-5 Days
[2018-07-07 15:55] VITALS: BP 104/58
== END 2018-07-07 18:16 | DRG 562 ==
LOC: ED 21:51 → 4A 07-03 03:22
PROVIDERS: ADMIT Internal Medicine; ATTEND Internal Medicine
DX: S42.292A Other displaced fracture of upper end of left humerus, initial encounter for closed fracture (principal); E43 Unspecified severe protein-calorie malnutrition; G45.9 Transient cerebral ischemic attack, unspecified; Z68.1 Body mass index [BMI] 19.9 or less, adult; G20 Parkinson's disease; F03.90 Unspecified dementia, unspecified severity, without behavioral disturbance, psychotic disturbance, mood disturbance, and anxiety; I10 Essential (primary) hypertension; W17.89XA Other fall from one level to another, initial encounter; Y93.89 Activity, other specified; Y92.89 Other specified places as the place of occurrence of the external cause; Y99.8 Other external cause status; Z86.718 Personal history of other venous thrombosis and embolism; Z79.899 Other long term (current) drug therapy; Z79.82 Long term (current) use of aspirin
CPT/HCPCS: 36415; 70450; 70496; 70498; 70551; 71045; 72125; 72170; 80048; 80053; 80320; 81001; 82550; 84484; 85025; 85610; 85730; 86850; 86900; 86901; 93005; 93010; 93306; 93880; 96374; G0378; G0480; J1650; J2060; J2270; J2405; J3010; J7040; Q9967